=== PATIENT | female | born 1965 | race Caucasian/White ===

== ENCOUNTER 2023-04-25 04:28 | Emergency (ER) | payer OTHER ==
[~2023-04-25] VITALS: Ht 160 cm; Wt 87.0 kg
[~2023-04-25 04:28] MED LIST: AMLO5TAB66 PO; CYCL-309 PO; HYDR-4061 PO; HYDR25TA PO; IBUP-1493 PO; [UNRECOGNIZED DRUG - CODE] PO
[2023-04-25 04:43] VITALS: BP 129/74; PULSE 89; RESP 17; TEMP 98.7
[2023-04-25 05:59] LABS: INFLUENZA TYPE A NEGATIVE FOR TYPE A (NEGATIVE); INFLUENZA TYPE B NEGATIVE FOR TYPE B (NEGATIVE)
== END 2023-04-25 06:55 | disposition home or self-care (01) ==
LOC: EMS 04:30
DX: B34.9 Viral infection, unspecified (principal); F41.9 Anxiety disorder, unspecified; I10 Essential (primary) hypertension; Z87.442 Personal history of urinary calculi
CPT/HCPCS: 87804; 99283